=== PATIENT | female | born 1975 | race Caucasian/White ===

== ENCOUNTER → 2016-07-22 | Outpatient (CLI) | payer MEDICARE ==
[~2016-07-22] MED LIST: ATIVAN 0.5MG0.5 MG PO; AUGMENTIN875 MG PO; BENTYL20 MG PO; COLACE100 MG PO; DILAUDID 2MG(HYD2 MG PO; DILAUDID 4MG4 MG PO; FLORASTOR250 MG PO; LASIX20 MG PO; MS CONTIN30 MG PO; NEURONTIN600 MG PO; NICODERM/HABITR21 MG TRANS; OXYCONTIN15 MG; PHENERGAN25 M1 PO; SOMA350 MG PO; STOOL SOFTENER1 EACH PO; TYLENOL325 MG PO; WELLBUTRIN SR150 MG PO; WELLBUTRIN100 MG PO; XANAX1 MG PO; ZOFRAN4 MG PO
== END | disposition disaster alternative care site (69) ==
LOC: GRAD 12:46
DX: R51 Headache (principal); R83.9 Unspecified abnormal finding in cerebrospinal fluid; Z98.2 Presence of cerebrospinal fluid drainage device